=== PATIENT | male | born 1995 | race Caucasian/White ===

== ENCOUNTER 2024-09-20 18:14 | Emergency (ER) | payer OTHER ==
[2024-09-20 18:41] LABS: BILIRUBIN, URINE NEGATIVE (negative); BLOOD/HGB, URINE SMALL (Negative); KETONE, URINE NEGATIVE (Negative); LEUK ESTERASE, URINE MODERATE (negative); NITRITE, URINE NEGATIVE (negative)
[2024-09-20 18:52] LABS: BACTERIA, URINE RARE /hpf (negative); CASTS, URINE NONE SEEN \\lpf; COLLECTION TYPE, URINE VOID; CRYSTALS, URINE NONE SEEN (0-1+); EPITHELIAL CELLS, URINE SQUAMOUS 1+ /lpf (0-1+); REFLEX CULTURE, URINE Yes (No)
[2024-09-20 20:09] LABS: N. GONORRRHOEAE BY PCR NOT DETECTED (NOT DETECT)
[2024-09-20] MEDS ORDERED: AZITHROMYCIN 250 MG TAB PO ONE (21:00)
[2024-09-20] MEDS ORDERED: DOXYCYCLINE HYCLATE 100 MG HOME.PACK PO ONE (21:00)
[2024-09-20 21:11] VITALS: BP 121/72
[2024-09-22 10:18] LABS: HIV 1,2 COMBO ANTIGEN/ANTIBODY Negative (Negative)
[2024-09-23 13:22] LABS: T.PALLIDUM AB,IGG (FTA-ABS) Non Reactive (Non Reactive)
== END 2024-09-20 21:12 | disposition home or self-care (01) ==
LOC: ED 18:14
PROVIDERS: Emergency Medicine; Family Medicine
DX: A56.2 Chlamydial infection of genitourinary tract, unspecified (principal)
CPT/HCPCS: 36415; 81001; 86780; 87088; 99283; A9270